=== PATIENT | female | born 1945 | race Caucasian/White ===

== ENCOUNTER 2016-08-13 05:30 | Day surgery (SDC) | payer MEDICARE, OTHER ==
[2016-08-12 12:00] LABS: MCH 33.3 pg (26.0-34.0); MCHC 34.1 g/dL (31.0-37.0); MCV 97.6 fL (80.0-100.0); MEAN PLATELET VOLUME 9.7 fL (7.4-10.4); RBC 4.2 10x6/uL (4.00-5.40); RDW 12.4 % (11.5-14.5); WBC 4.2 10x3/uL (4.8-10.8)
[2016-08-12 12:28] LABS: APTT 33.9 SECONDS (22.8-39.4); INR 2.08 (0.85-1.17); PROTIME 23.4 SECONDS (11.6-15.0)
[~2016-08-13] VITALS: Ht 167.6 cm; Wt 68.9 kg
[~2016-08-13 05:30] MED LIST: COUMADIN2 MG PO; COZAAR100 MG PO; PROPAFENONE HC150 MG PO
[2016-08-13] MEDS ORDERED: COUMADIN3 MG PO (05:48)
[2016-08-13 05:50] VITALS: BP 166/88; Ht 167.6 cm; Wt 68.9 kg
--- NOTE | 2016-08-13 10:01 | NUR ---
0930-IV DC'D, PT UP TO DRESS. MARIO MCINTYRE [id number]--DISCHARGE INSTRUCTIONS GIVEN, PT VERBALIZES UNDERSTANDING. PT OFF UNIT VIA WC. MARIO MCINTYRE
--- NOTE | 2016-08-13 11:35 | OP ---
PATIENT NAME: JIMMY KUHN MEDICAL RECORD: [id number] :44 LOCATION:D.OPS ADMISSION DATE: SURGEON: CRISTINO AGARWAL MD DATE OF OPERATION: 08/13/2016 SURGEON: Cristino Agarwal MD ANESTHESIA: MAC by Dr. Singer. PREOPERATIVE DIAGNOSES: Interstitial cystitis. PROCEDURES: Cystoscopy, intravesical Rimso installation 50% times 50 mL by [employer], lot #[id number], expiration date January 2018. FINDINGS: Diffuse bladder inflammation. Single ureteral orifices bilaterally. No bladder tumors CLINICAL HISTORY: This is a 70-year-old female, who has ongoing symptoms of a urinary tract infection. She has urinary frequency, urgency, dysuria, and suprapubic pain. Urine cultures have shown no growth. She has been on multiple antibiotics without any benefit. She comes now to have cystoscopy to try to check for bladder inflammation. If the inflammation is seen, we will treat with intravesical Rimso, which is an anti-inflammatory. She was covered perioperatively with Ancef 1 g IV section 8 property manager to the OR. DESCRIPTION OF PROCEDURE: The patient was given IV sedation. She was placed into dorsal lithotomy position and prepped and draped. A 21-Armenian cystoscope with 30-degree lens was used for visualization. Findings are as outlined above. No bladder tumors were seen. We then drained the bladder through the cystoscope sheath. The scope was removed. A 14-Armenian red rubber catheter was inserted into the bladder. A 50 mL of Rimso solution were then instilled into the bladder. Once the solution had been placed into the bladder, the red rubber catheter was removed. The patient was awakened and brought to the recovery room. TRANSINT:[id number] Voice Confirmation ID: [id number] DOCUMENT ID: [id number] CRISTINO AGARWAL MD at 1135 CC: [id number] DICTATION DATE: 08/13/16814 TECHNICAL SOLUTIONS CONSULTANT: 08/13/16 1055 [facility] 08/13/[address] [address]
== END 2016-08-13 09:50 | disposition home or self-care (01) ==
LOC: D.OPS 05:30 → D.PAN 07:30 → D.OPS 07:30 → D.PAN 08:15 → D.OPS 08:15
PROVIDERS: Anesthesiology
DX: N30.10 Interstitial cystitis (chronic) without hematuria (principal); Z01.812 Encounter for preprocedural laboratory examination

== ENCOUNTER → 2016-09-04 19:37 | Outpatient (CLI) | payer MEDICARE, OTHER ==
[2016-08-13 05:50] VITALS: BMI 24.5
[~2016-09-04 19:37] MED LIST changes: +COUMADIN3 MG PO
[2016-09-04 20:08] LABS: APPEARANCE HAZY (CLEAR); BILIRUBIN NEGATIVE (NEGATIVE); COLOR YELLOW (YELLOW); GLUCOSE NEGATIVE (NEGATIVE); KETONE NEGATIVE (NEGATIVE); LEUKOCYTE ESTERASE TRACE (NEGATIVE); NITRITE NEGATIVE (NEGATIVE); PROTEIN NEGATIVE (NEGATIVE); UROBILINOGEN NORMAL (NORMAL)
[2016-09-04 20:10] LABS: BACTERIA FEW /hpf (NONE SEEN); MUCUS <1+ /lpf (NONE SEEN); RED CELLS - URINE 0-5 /hpf (0-5); WHITE CELLS - URINE 0-5 /hpf (0-5); YEAST RARE /hpf (NONE SEEN)
== END | disposition home or self-care (01) ==
LOC: D.LABREF 19:37
PROVIDERS: Urology
DX: N39.0 Urinary tract infection, site not specified (principal)

== ENCOUNTER → 2016-09-09 19:08 | Outpatient (CLI) | payer MEDICARE, OTHER ==
[2016-08-13 05:50] VITALS: BMI 24.5
[2016-09-09 19:47] LABS: APPEARANCE CLEAR (CLEAR); BILIRUBIN NEGATIVE (NEGATIVE); COLOR YELLOW (YELLOW); GLUCOSE NEGATIVE (NEGATIVE); KETONE NEGATIVE (NEGATIVE); LEUKOCYTE ESTERASE NEGATIVE (NEGATIVE); NITRITE NEGATIVE (NEGATIVE); PROTEIN NEGATIVE (NEGATIVE); SPECIFIC GRAVITY 1.015 (1.005-1.020); UROBILINOGEN NORMAL (NORMAL)
== END | disposition home or self-care (01) ==
LOC: D.LABREF 19:08
PROVIDERS: Urology
DX: N39.0 Urinary tract infection, site not specified (principal)

== ENCOUNTER → 2016-09-18 17:02 | Outpatient (CLI) | payer MEDICARE, OTHER ==
[2016-08-13 05:50] VITALS: BMI 24.5
[2016-09-18 17:54] LABS: APPEARANCE CLEAR (CLEAR); BILIRUBIN NEGATIVE (NEGATIVE); COLOR YELLOW (YELLOW); GLUCOSE NEGATIVE (NEGATIVE); KETONE NEGATIVE (NEGATIVE); LEUKOCYTE ESTERASE NEGATIVE (NEGATIVE); NITRITE NEGATIVE (NEGATIVE); PROTEIN NEGATIVE (NEGATIVE); UROBILINOGEN NORMAL (NORMAL)
== END | disposition home or self-care (01) ==
LOC: D.LABREF 17:02
PROVIDERS: Urology
DX: N39.0 Urinary tract infection, site not specified (principal)

== ENCOUNTER → 2016-10-12 19:03 | Outpatient (CLI) | payer MEDICARE, OTHER ==
[2016-08-13 05:50] VITALS: BMI 24.5
[2016-10-12 20:30] LABS: APPEARANCE CLEAR (CLEAR); COLOR YELLOW (YELLOW)
[2016-10-12 20:31] LABS: BILIRUBIN NEGATIVE (NEGATIVE); GLUCOSE NEGATIVE (NEGATIVE); KETONE NEGATIVE (NEGATIVE); LEUKOCYTE ESTERASE TRACE (NEGATIVE); NITRITE NEGATIVE (NEGATIVE); PROTEIN NEGATIVE (NEGATIVE); UROBILINOGEN NORMAL (NORMAL)
[2016-10-12 20:33] LABS: EPITHELIAL CELLS 0-5 /hpf (0-5); RED CELLS - URINE OCC /hpf (0-5)
[2016-10-12 20:38] LABS: BACTERIA FEW /hpf (NONE SEEN); WHITE CELLS - URINE 0-5 /hpf (0-5)
== END | disposition home or self-care (01) ==
LOC: D.LABREF 19:03
PROVIDERS: Urology
DX: N39.0 Urinary tract infection, site not specified (principal)

== ENCOUNTER → 2016-12-17 19:27 | Outpatient (CLI) | payer MEDICARE, OTHER ==
[2016-08-13 05:50] VITALS: BMI 24.5
== END | disposition home or self-care (01) ==
LOC: D.LABREF 19:27
DX: N39.0 Urinary tract infection, site not specified (principal)

== ENCOUNTER → 2016-12-29 16:21 | Outpatient (CLI) | payer MEDICARE, OTHER ==
[2016-08-13 05:50] VITALS: BMI 24.5
== END | disposition home or self-care (01) ==
LOC: D.LABREF 16:21
DX: N39.0 Urinary tract infection, site not specified (principal)

== ENCOUNTER → 2017-03-16 19:37 | Outpatient (CLI) | payer MEDICARE, OTHER ==
[2016-08-13 05:50] VITALS: BMI 24.5
== END | disposition home or self-care (01) ==
LOC: D.LABREF 19:37
DX: N39.0 Urinary tract infection, site not specified (principal)

== ENCOUNTER 2018-01-04 06:32 | Day surgery (SDC) | payer MEDICARE, OTHER ==
[~2018-01-04] VITALS: Ht 170.2 cm; Wt 68.5 kg
--- NOTE | ~2018-01-04 | OP ---
PATIENT NAME: JIMMY CHU MEDICAL RECORD: [id number] :44 LOCATION:[facility] ADMISSION DATE: SURGEON: GEORGIA ANGEL MD DATE OF OPERATION: 01/04/2018 SURGEON: Georgia Angel MD PRIMARY CARE PHYSICIAN: Kiah Brand MD OPERATION PERFORMED: High ligation and division of saphenofemoral junction and extensive stab avulsion phlebectomy in the left lower extremity. Preoperative diagnoses: POSTOPERATIVE DIAGNOSIS: Recurrent highly symptomatic large varicose veins on the anterior medial left leg and left thigh with extensive neovascularization in the groin, which developed following a prior high ligation. ANESTHESIA: General with LMA per BUILDING TRADES TEACHER. PREOPERATIVE NOTE: Ms. Chu is a very nice 72-year-old white female patient who has had several prior operations for symptomatic varicose veins in her left leg. She at present has had I think 2 prior vein strippings, at least 1 with a formal high ligation and division of the greater saphenous vein at the saphenofemoral junction and she has large ropey recurrent painful varicose veins from the groin to the ankle. My duplex ultrasound examination revealed no street segments of vein suitable for catheter-based Coblation and she is brought to the hospital today with plans to do an extensive stab avulsion phlebectomy with also ligation and division of the neovascular recurrent veins in the region of the saphenofemoral junction. Under general anesthesia in supine position, the patient was prepped and draped in sterile manner. I had marked the location of the varices on her thigh and leg with a Sharpie pen prior to induction of anesthesia. She was left in a neutral level position and an oblique incision in the groin made and a large nest of veins was ligated and excised. I did not expose the common femoral vein. I then made an approximately 35 stab incisions going down or coming up from the ankle to the groin and removed segments of vein with a phlebectomy hook. Bleeding was a fairly minimal for the scope of this operation. The leg was first infiltrated with a tumescent solution of epinephrine and saline and this did not only help reduce bleeding, but helped dissect and free up the veins from the surrounding subcutaneous tissues. The patient has a HISTORY OF ALLERGY TO LIDOCAINE and so lidocaine was not included in the tumescent mix. The incisions were closed with interrupted 4-0 Prolene. The groin incision was irrigated with saline and closed with interrupted inverted 3-0 Vicryl and then running intracuticular 4-0 Monocryl and Dermabond glue. Dressings of Maxorb Ag, Tegaderm, and Cavilon skin prep were applied. The patient was then placed in her 30-40 open toe thigh high compression stocking and additional Coban wrapping was applied externally. She was awakened and in stable condition taken to the recovery room. Blood loss during the operation was insignificant about 50 cc. None was replaced. All sponges, instruments and needles were accounted for. No drain was used. Ms. Chu should be allowed to go home today. She can rest and elevate her OPERATIVE REPORT [id number] JIMMY CHU leg at home, though she should periodically get up and walk around outdoors if weather permits. Tomorrow morning, she may take off her stocking and bandages and take a shower and wash over the incision sites with soap and water as desired. Then, she will put her stocking back on. She should not need any additional wrap or bandages after that and she can, of course shower daily, but I would like her to wear her compression thigh high stocking 14/09 until I see her back in my office next week. We will make an appointment for her to return for suture removal and wound check. She is given a prescription for tramadol 50 mg #20, 1-2 p.o. q.4 hours p.r.n. pain, which she may take if needed, also alternating with Tylenol and ibuprofen. She is to continue all of her prior home medications and diet and activities as tolerated. TRANSINT:[id number] Voice Confirmation ID: [id number] DOCUMENT ID: [id number] GEORGIA ANGEL MD at 1132 CC: KIAH BRAND [id number] DICTATION DATE: 01/04/18 111 NATIONAL ACCOUNT REPRESENTATIVE: 01/04/18 1145 [facility] 01/04/18 [id number] [place] [address]
[2018-01-04 07:01] LABS: BASOPHILS 0.3 % (0-2); EOSINOPHILS 1.4 % (0-7); IMMATURE GRANULOCYTES 0.3 % (0-5); LYMPHOCYTES 30.2 % (15-50); MCH 33.1 pg (26.0-34.0); MCHC 34.1 g/dL (31.0-37.0); MCV 97.1 fL (80.0-100.0); MEAN PLATELET VOLUME 10.3 fL (7.4-10.4); MONOCYTES 12.1 % (2-11); NEUTROPHILS 55.7 % (40-80); PLATELET COUNT 183 10x3/uL (130-400); RBC 4.53 10x6/uL (4.00-5.40); RDW 12.4 % (11.5-14.5); WBC 3.5 10x3/uL (4.8-10.8)
[2018-01-04 07:02] LABS: ANION GAP 9.5 mmol/L (8-16); CALCIUM 8.9 mg/dL (8.5-10.1); CARBON DIOXIDE 31.1 mmol/L (21.0-32.0); CREATININE - SERUM 0.9 mg/dL (0.6-1.3); POTASSIUM - SERUM 3.6 mmol/L (3.5-5.1)
[2018-01-04 07:31] LABS: APTT 24.6 SECONDS (22.8-39.4); INR 0.99 (0.85-1.17); PROTIME 12.7 SECONDS (11.6-15.0)
[2018-01-04 07:34] VITALS: BP 174/88; Ht 170.2 cm; Wt 68.5 kg
[2018-01-04] MEDS ORDERED: ULTRAM50 MG PO (14:12)
== END 2018-01-04 15:27 | disposition home or self-care (01) ==
LOC: D.OPS 06:32
PROVIDERS: Surgery
DX: I83.892 Varicose veins of left lower extremity with other complications (principal); Z01.812 Encounter for preprocedural laboratory examination

== ENCOUNTER → 2018-05-03 17:13 | Outpatient (CLI) | payer MEDICARE ==
[2018-01-04 07:34] VITALS: BMI 23.7
[~2018-05-03 17:13] MED LIST changes: +ULTRAM50 MG PO
== END | disposition home or self-care (01) ==
LOC: D.LABREF 17:13
PROVIDERS: ATTEND Urology
DX: R31.9 Hematuria, unspecified (principal); D72.829 Elevated white blood cell count, unspecified

== ENCOUNTER → 2018-05-27 14:14 | Outpatient (CLI) | payer MEDICARE, BC ==
[2018-01-04 07:34] VITALS: BMI 23.7
== END | disposition home or self-care (01) ==
LOC: D.RAD 14:14
PROVIDERS: ATTEND Urology
DX: Z87.442 Personal history of urinary calculi (principal)

== ENCOUNTER → 2018-06-02 15:05 | Outpatient (CLI) | payer MEDICARE, BC | END | disposition home or self-care (01) | LOC: D.CT 15:05 | DX: R10.9 Unspecified abdominal pain (principal) ==

== ENCOUNTER → 2018-06-13 13:12 | Outpatient (CLI) | payer MEDICARE, BC ==
[2018-01-04 07:34] VITALS: BMI 23.7
== END | disposition home or self-care (01) ==
LOC: D.LABREF 13:12
PROVIDERS: ATTEND Urology
DX: D72.829 Elevated white blood cell count, unspecified (principal); R31.9 Hematuria, unspecified